=== PATIENT | male | born 1970 | race Caucasian/White ===

== ENCOUNTER 2023-09-10 13:33 | Inpatient (IN) | payer OTHER ==
[~2023-09-10] VITALS: Ht 180.3 cm; Wt 113.9 kg
[2023-09-10 13:42] VITALS: BP_SYST 166; PULSE 104; RESP 18; TEMP 97.4; O2SAT 98
[2023-09-10 14:10] LABS: BASOPHILS % (AUTO) 0.3 % (0.0-2.0); EOSINOPHILS # (AUTO) 0.1 K/uL (0.0-0.4); EOSINOPHILS % (AUTO) 0.4 % (0.0-4.0); HEMATOCRIT 47.8 % (36-54); HEMOGLOBIN 16.4 g/dL (14.0-18.0); LYMPHOCYTES % (AUTO) 14.3 % (20.5-51.5); MEAN CORPUSCULAR HEMOGLOBIN 31 pg (27-31); MEAN CORPUSCULAR HGB CONC 34 % (32-36); MEAN CORPUSCULAR VOLUME 89 fL (79.0-98.0); MONOCYTES % (AUTO) 7.4 % (1.7-9.3); NEUTROPHILS # (AUTO) 10.9 K/uL (1.8-7.7); NEUTROPHILS % (AUTO) 77.6 % (40.0-70.0); PLATELET COUNT (AUTO) 170 K/uL (130-430); RED BLOOD CELL COUNT(AUTO) 5.36 MIL/uL (4.2-6.2); RED CELL DISTRIBUTION WIDTH 13.1 % (9.0-15.0)
[2023-09-10 14:19] LABS: ANION GAP 10 (5-15); CALCIUM 9.5 mg/dL (8.4-11.0); CARBON DIOXIDE 27 mmol/L (23-29); CHLORIDE 99 mmol/L (98-107); GFR AFRICAN AMERICAN 130 mL/min (>90); GLUCOSE 99 mg/dL (74-106); POTASSIUM 4.1 mmol/L (3.5-5.1); SODIUM SERUM 136 mmol/L (136-145); UREA NITROGEN, BLOOD 11 mg/dL (8-21)
[2023-09-10 14:20] LABS: GFR NON AFRICAN-AMERICAN 107 mL/min (>90)
[2023-09-10 14:21] LABS: INR 1.1 (0.80-1.20); PROTHROMBIN TIME 10.9 SECS (9.5-12.5)
[2023-09-10 14:26] LABS: ALANINE AMINOTRANSFERASE 92 U/L (12-78); ALBUMIN 4.5 g/dL (3.4-4.8); ASPARTATE AMINOTRANSFERASE 60 U/L (10-37); TOTAL BILIRUBIN 1.3 mg/dL (0.0-1.0); TOTAL PROTEIN, SERUM 7.4 g/dL (6.4-8.3)
[2023-09-10] MEDS ORDERED: ASPIRIN 81 MG TAB.CHEW PO ONE (16:15)
[2023-09-10] MEDS: NACL 0.9% 1,000 ML IV SCH (17:46)
[2023-09-10 18:36] VITALS: BP_SYST 136; PULSE 95; RESP 18; TEMP 96.9; O2SAT 99
[2023-09-10 20:00] VITALS: O2SAT 96
[2023-09-10 21:08] VITALS: BP_SYST 127; PULSE 97; RESP 18; TEMP 98.9; O2SAT 96
[2023-09-11 00:33] VITALS: BP_SYST 122; PULSE 88; RESP 18; TEMP 97.3; O2SAT 96
[2023-09-11 04:55] LABS: BASOPHILS % (AUTO) 0.4 % (0.0-2.0); EOSINOPHILS # (AUTO) 0.1 K/uL (0.0-0.4); EOSINOPHILS % (AUTO) 1.7 % (0.0-4.0); HEMATOCRIT 44.4 % (36-54); HEMOGLOBIN 15.2 g/dL (14.0-18.0); LYMPHOCYTES # (AUTO) 2.7 K/uL (1.0-5.5); LYMPHOCYTES % (AUTO) 35.6 % (20.5-51.5); MEAN CORPUSCULAR HEMOGLOBIN 31 pg (27-31); MEAN CORPUSCULAR HGB CONC 34 % (32-36); MEAN CORPUSCULAR VOLUME 90 fL (79.0-98.0); MONOCYTES # (AUTO) 0.6 K/uL (0.0-1.0); MONOCYTES % (AUTO) 8.4 % (1.7-9.3); NEUTROPHILS # (AUTO) 4.1 K/uL (1.8-7.7); NEUTROPHILS % (AUTO) 53.9 % (40.0-70.0); PLATELET COUNT (AUTO) 148 K/uL (130-430); RED BLOOD CELL COUNT(AUTO) 4.91 MIL/uL (4.2-6.2); RED CELL DISTRIBUTION WIDTH 13.4 % (9.0-15.0); WHITE BLOOD COUNT (AUTO) 7.6 K/uL (4.8-10.8)
[2023-09-11 05:17] LABS: ALBUMIN 3.5 g/dL (3.4-4.8); BILIRUBIN,DIRECT 0.3 mg/dL (0.0-0.3); TOTAL BILIRUBIN 1.3 mg/dL (0.0-1.0); TOTAL PROTEIN, SERUM 6.4 g/dL (6.4-8.3)
[2023-09-11 05:31] LABS: BARBITURATE, URINE NEGATIVE (NEG <=200); BENZODIAZEPINE, URINE NEGATIVE (NEG <=150); CANNABINOID, URINE NEGATIVE (NEG <=50); COCAINE, URINE NEGATIVE (NEG <=150); METHAMPHETAMINES SCREEN,URINE NEGATIVE (NEG <=500); OPIATE, URINE NEGATIVE (NEG <=100); PHENCYCLIDINE SCREEN,URINE NEGATIVE (NEG <=25); UR TRICYCLIC ANTIDEPRESSANTS NEGATIVE (NEG <=300); URINE AMPHETAMINE NEGATIVE (NEG <=500); URINE METHADONE NEGATIVE (NEG <=200); URINE OXYCODONE SCREEN NEGATIVE (NEG <=100); URINE PROPOXYPHENE SCREEN NEGATIVE (NEG <=300)
[2023-09-11 08:00] VITALS: BP_SYST 134; PULSE 78; RESP 16; TEMP 97.9; O2SAT 94
[2023-09-11] MEDS ORDERED: DEXTROSE 50% JECT 50 ML DISP.SYRIN IVP PRN (08:45)
[2023-09-11] MEDS ORDERED: ASPIRIN 81 MG TABLET(ECOTRIN) PO SCH (09:00)
[2023-09-11] MEDS ORDERED: ATORVASTATIN 20 MG TABLET PO ONE (09:30)
[2023-09-11] MEDS: INSULIN LISPRO SLIDING SCALE 100 UNITS/ML, 3 ML VIAL (humaLOG) SUBCUT PRN ×2 (09:50→11:49)
[2023-09-11 10:06] VITALS: O2SAT 97
[2023-09-11 11:23] VITALS: BP_SYST 151; PULSE 89; RESP 16; TEMP 97.1; O2SAT 93
[2023-09-11] MEDS: NACL 0.9% 1,000 ML IV SCH (12:37)
[2023-09-11 15:20] VITALS: BP_SYST 112; PULSE 82; RESP 16; TEMP 97.9; O2SAT 93
[2023-09-11 16:10] VITALS: BP_SYST 141; PULSE 89; RESP 16; TEMP 97.2; O2SAT 96
[2023-09-12] MEDS ORDERED: ATORVASTATIN 20 MG TABLET PO SCH (09:00)
== END 2023-09-11 16:40 | disposition home or self-care (01) | DRG 69 ==
LOC: SED 13:33 → SMU 16:40
PROVIDERS: ADMIT General Practice; ATTEND General Practice
DX: G45.9 Transient cerebral ischemic attack, unspecified (principal); R47.01 Aphasia; E78.5 Hyperlipidemia, unspecified; E66.9 Obesity, unspecified; R74.01 Elevation of levels of liver transaminase levels; E86.0 Dehydration; G90.8 Other disorders of autonomic nervous system; E11.43 Type 2 diabetes mellitus with diabetic autonomic (poly)neuropathy; Z79.82 Long term (current) use of aspirin; Z68.35 Body mass index [BMI] 35.0-35.9, adult
CPT/HCPCS: 36415; 70450-TC; 70551; 76376; 76700-TC; 80053; 80061; 80076; 80307; 82962; 83037; 84443; 84484; 85025; 85610-TC; 85730-TC; 93005; 95816; 97112-GP; 97116-GP; 99291